=== PATIENT | female | born 1975 | race African-American/Black ===

== ENCOUNTER 2025-03-24 22:47 | Inpatient (IN) | payer BC ==
[~2025-03-24] VITALS: Ht 157.5 cm; Wt 59.0 kg
[~2025-03-24 22:47] MED LIST: ATEN100T PO; BUPR10DI TD; CLON0.1T PO; FER300LQ GT; FERRCAP OR; HYDR50TA69 PO; PANT40TA2 PO
--- NOTE | 2025-03-24 23:17 | ECG ---
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
--- NOTE | 2025-03-24 23:18 | ED.PDOC ---
History of Present Illness HPI Comments 49 year old female with a Hx of Ectopic , CHF, Anemia, and Depression was BIBA for the c/c of Generalized Weakness w/ associated Dizziness, dyspnea and severe fatigue on mild exertion, Constipation and N/. Pt states that her symptoms have been onset for 1x month with no alleviating factors, but a wo rsening factors of walking. Pt notes that she has not been able to take her Iron pills due to a prior Gastric Bypass surgery. No other associated symptoms, modifiers, recent injuries or sick contacts present at this time. Chief Complaint: General Weakness Time Seen by MD: 23:13 Reviewed Notes: Nurses Notes, General Purchasing Agent Notes, Medications, Allergies Allergies: Uncoded Allergies: Banana,Iodine, Latex (Allergy, Severe, Buenrostro , Itching, 12/05/23) Iodine-Buenrostro Banana/Latex-Severe Itchiness Home Meds Active Scripts Ferrous Fumarate W/ B12-Vit C- (Foltrin) Cap, 1 BOT OR DAILY for 30 Days, #30 CAP Prov:ML BURDEN RESIDENT 12/06/23 Reported Medications Ferrous Sulfate (Ferrous Sulfate) 300 Mg/5 Ml Sr, 300 MG GT, SYP 12/05/23 Atenolol (Atenolol) 100 Mg Tab, 1 TAB PO DAILY, #30 TAB 5 Refills 12/05/23 Pantoprazole Sodium Sesquihydr (Protonix) 40 Mg Tab, 40 MG PO DAILY, #30 TAB 12/05/23 Clonidine Hydrochloride (Clonidine Hcl) 0.1 Mg Tab, 0.1 MG PO BID, TAB 12/05/23 Buprenorphine (BUTRANS) 10 Mcg/Hr Dis, 10 MCG TD, DIS 12/05/23 Hydroxyzine Hcl (Hydroxyzine Hcl) 50 Mg Tab, 1 TAB PO BID, #90 TAB 2 Refills 12/05/23 Information Source: Patient, Emergency Med Personnel Mode of Arrival: EMS Severity: Moderate Timing: Months Duration: Intermittent Prehospital treatment: Pain Meds Past Medical History PAST MEDICAL HISTORY: Anemia, CHF, Depression Surgical History (Other): Gastric Bypass, 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 Moist mucous membranes.) Neck: Full Range of Motion, Normal Inspection Respiratory: Lungs Clear, No Accessory Muscle Use, No Respiratory Distress, Normal Breath Sounds Cardiovascular: No Edema, No JVD, Regular Rate/Rhythm Breast Exam: Deferred Gastrointestinal: Non Tender, Soft Genitalia: Deferred Pelvic: Deferred Rectal: Deferred Extremities: Normal inspection, Normal range of motion, Non-tender, No pedal edema Neurologic: Alert (Oriented x4), Normal Affect, Normal Mood, Other (Ambulatory) Cerebellar Function: NOT DONE Reflexes: NOT DONE Skin: Dry, Pallor, Warm Lymphatic: NOT DONE Was a procedure done? Was a procedure done?: No EKG EKG : Comments Sinus rhythm, rate 82, normal intervals, normal axis, normal QRS, no ST/T change. Differential Dx Considerations may include: Anemia, CHF, electrolyte imbalance, arrhythmia, AL, hypovolemia, among others X-Ray, Labs, Meds, VS Vital Signs Date Time Temp Pulse Resp B/P (MAP) Pulse Ox O2 Delivery O2 Flow Rate FiO2 03/25/25 01:28 98.3 77 17 152/82 (105) 97 98.3 03/25/25 01:28 77 17 97 Room Air 03/24/25 23:03 98.7 89 18 159/98 (118) 97 98.7 03/24/25 22:55 82 Lab Test 03/25/25 00:24 03/24/25 23:25 03/24/25 22:59 03/24/25 03:25 Range/Units Troponin I High Sensitivity 3 L 3 L </=34 ng/L White Blood Count 4.2 L 4.4-10.8 10^3/uL Red Blood Count 2.85 L 4.0-5.20 10^6/uL Hemoglobin 6.5 *L 12.2-16.2 g/dL Hematocrit 20.6 L 36.0-46.0 % Mean Corpuscular Volume 72.3 L 80.0-100.0 fL Mean Corpuscular Hemoglobin 22.8 L 28.0-32.0 pg Mean Corpuscular Hemoglobin Concent 31.5 L 32.0-36.0 g/dL Red Cell Distribution Width 19.0 H 11.8-14.3 % Platelet Count 246 140-450 10^3/uL Mean Platelet Volume 6.9 6.9-10.8 fL Neutrophils (%) (Auto) 55.4 37.0-80.0 % Lymphocytes (%) (Auto) 35.8 10.0-50.0 % Monocytes (%) (Auto) 7.5 0.0-12.0 % Eosinophils (%) (Auto) 0.8 0.0-7.0 % Basophils (%) (Auto) 0.5 0.0-2.0 % Neutrophils # (Auto) 2.3 1.6-8.6 10 ^3/uL Lymphocytes # (Auto) 1.5 0.4-5.4 10 ^3/uL Monocytes # (Auto) 0.3 0-1.3 10 ^3/uL Eosinophils # (Auto) 0 0-0.8 10 ^3/uL Basophils # (Auto) 0 0-0.2 10 ^3/uL Nucleated Red Blood Cells 0.1 % Sodium Level 139 136-145 mmol/L Potassium Level 3.9 3.5-5.1 mmol/L Chloride Level 105 98-107 mmol/L Carbon Dioxide Level 27 20-31 mmol/L Anion Gap 7 5-15 Blood Urea Nitrogen 13 9-23 mg/dL Creatinine 0.81 0.550-1.02 mg/dL Glomerular Filtration Rate Calc 89 >90 mL/min BUN/Creatinine Ratio 16.0 10.0-20.0 Serum Glucose 92 74-106 mg/dL Calcium Level 9.0 8.7-10.4 mg/dL B-Type Natriuretic Peptide 27.66 0-100 pg/mL POC Glucose 92 70-106 mg/dl Urine Color Pending Urine Clarity Pending Urine pH Pending Urine Specific [place] Pending Urine Protein Pending Urine Ketones Pending Urine Blood Pending Urine Nitrite Pending Urine Bilirubin Pending Urine Urobilinogen Pending Urine Leukocyte Esterase Pending Urine RBC Pending Urine Microscopic WBC Pending Urine Squamous Epithelial Cells Pending Urine Bacteria Pending Urine Glucose Pending Urine Test Pending PATIENT: MIKE RICH ACCT: [id number] UNIT: [id number] : 1975 LOC: ER ROOM / BED: / AGE / SEX: 49 / F ADM STATUS: REG ER SERVICE [id number] ORDERING PHYSICIAN: MICKEY CAPPS MD PROCEDURE(s): CXRP - CHEST PORTABLE REASON: sob gen vyas ORDER NUMBER(s): [id number], ACCESSION NUMBER(s): [id number] CHEST RADIOGRAPH Indication: heather vyas Technique: Single frontal view of the chest was obtained COMPARISON: None FINDINGS: Lines and Tubes: None Lungs: Clear Pleura: No effusion. No pneumothorax. Cardiomediastinal contours: Unremarkable Bones: Unremarkable IMPRESSION: 1. No acute disease. X-Ray, Labs, Meds, VS Comment 49-year-old female with a history of Ectopic , CHF, Anemia, and Depression complaining of general weakness, dizziness, dyspnea on exertion and nausea Vitals remarkable for BP 159/98 Exam remarkable for pallor Rhythm strip independently interpreted by me: Sinus rhythm, rate 82, no ectopy. Chest x-ray unremarkable CBC remarkable for WBC 4.2, hemoglobin 6.5, hematocrit 20.6, metabolic panel, BNP and 2 serial troponins negative Patient treated with the following in the ED: Typed and crossed for 1 unit of packed red cells and transfusion ordered Plan is to admit the patient for transfusion and hemoglobin trend Patient refused blood transfusion, stating that she has had transfusions in the past that did not work for her anemia. She states on her last admission here she received an iron infusion which did help improve her hemoglobin. We will hold off on blood transfusion for now. Iron panel and iron infusion were ordered. Time of 1ST Reevaluation: 23:43 Reevaluation 1ST: Unchanged Patient Education/Counseling: Diagnosis, Treatment, Need For Follow Up Family Education/Counseling: No Family Present SEPSIS Sepsis Screen Physician Orders Chest Portable (03/24/25 23:10) Urinalysis (03/24/25 23:10) Test, Urine (03/24/25 23:10) Type And Screen (03/25/25 00:35) Vital Signs Date Time Temp Pulse Resp B/P (MAP) Pulse Ox O2 Delivery O2 Flow Rate FiO2 03/25/25 01:28 98.3 77 17 152/82 (105) 97 98.3 03/25/25 01:28 77 17 97 Room Air 03/24/25 23:03 98.7 89 18 159/98 (118) 97 98.7 03/24/25 22:55 82 Laboratory Tests Test 03/24/25 23:25 White Blood Count 4.2 10^3/uL (4.4-10.8) L Departure 1 Departure Time of Disposition: 00:44 Impression: Primary Impression: Severe anemia Disposition: 09 ADMITTED INPATIENT Admit to: Med Surg Condition: Guarded Critical Care Note Critical Care Time?: Yes (35 min-critical care time only) Critical care comment: Critical care time including multiple bedside re-evaluations, review of lab and imaging studies, and discussion of the case with the admitting provider. Patient is high risk for hemodynamic decompensation. Stability Stability form required: No Heart Score Heart Score: Heart Score Response (Comments) Value History N/A 0 EKG N/A 0 Age N/A 0 Risk Factors N/A 0 Troponin N/A 0 Total 0 I personally scribed for MICKEY CAPPS MD ([email or web address]) on 03/24/25 at 23 :18. Electronically submitted by Pepe Raman ([email or web address]). I personally scribed for MICKEY CAPPS MD ([email or web address]) on 03/24/25 at 23:59. Electronically submitted by Pepe Raman ([email or web address]). MICKEY CAPPS MD Mar 24, 2025 23:18
--- NOTE | 2025-03-24 23:47 | DVH ---
CHEST RADIOGRAPH Indication: sob gen weak Technique: Single frontal view of the chest was obtained COMPARISON: None FINDINGS: Lines and Tubes: None Lungs: Clear Pleura: No effusion. No pneumothorax. Cardiomediastinal contours: Unremarkable Bones: Unremarkable IMPRESSION: 1. No acute disease.
[2025-03-25] VITALS (7 sets, daily range): BP systolic 140–159; BP diastolic 78–89; PULSE 71–107; RESP 10–17; TEMP 98.1–99.1; O2SAT 99–100
[2025-03-25 00:05] LABS: Chloride 105 mmol/L (98-107); Potassium 3.9 mmol/L (3.5-5.1); Sodium 139 mmol/L (136-145)
[2025-03-25 00:06] LABS: Anion Gap 7 (5-15); Carbon Dioxide 27 mmol/L (20-31); Hematocrit 20.6 % (36.0-46.0); Mean Corpuscular Hemoglobin 22.8 pg (28.0-32.0); Mean Corpuscular Volume 72.3 fL (80.0-100.0); Nucleated Red Blood Cells % 0.1 %
[2025-03-25 00:07] LABS: Calcium 9.0 mg/dL (8.7-10.4)
[2025-03-25 00:09] LABS: Hemoglobin 6.5 g/dL (12.2-16.2)
[2025-03-25 00:11] LABS: BUN/Creatinine Ratio 16.0 (10.0-20.0); Blood Urea Nitrogen 13 mg/dL (9-23); Glucose 92 mg/dL (74-106)
[2025-03-25 03:55] LABS: Urine Protein, UAD Negative (Negative)
[2025-03-25 04:13] LABS: Iron 20.0 ug/dL (50-170)
[2025-03-25 04:14] LABS: Total Iron Binding Capacity 390.0 ug/dL (250-425)
--- NOTE | 2025-03-25 04:24 | DVHHP2 ---
History of Present Illness History of Present Illness History of Present Illness Patient is 48-year-old female with past medical history of gastric sleeve surgery, endometriosis, heavy menstrual bleeding came to the hospital with symptomatic severe anemia, hemoglobin 6.5. As per patient she has been diagnosed with severe iron-deficiency anemia and not taking oral supplement including iron tablets, intrinsic factor with B12 for past one and half year. Patient was hospitalized one year ago in [facility], received IV iron and advised to follow up with OBGYN in outpatient setting and was advised to take oral iron supplement. However patient came to the hospital with a chief complaint of generalized weakness, associated fatigue with mild exertion. Patient denied any other symptoms including fever, chills, menorrhagia, abdominal pain, chest pain, any other symptoms. As per patient her last menstrual period on week of March, nowadays she gets four days of bleeding, 3-4 pads per day. No any other symptoms at this point. Past Medical History Endometriosis, questionable CHF, iron-deficiency anemia, depression, ectopic Past Surgical History Gastric sleeve, tubal ligation Smoke: No, eats edible marijuana ALCOHOL: none Drugs: None Lives: with Family Review of Systems Constitutional: No: Fever, Chills, Sweats, Weakness, Malaise, Other Eyes: No: Pain, Vision change, Conjunctivae inflammation, Eyelid inflammation, Other, Redness ENT: No: Ear pain, Ear discharge, Nose pain, Nose discharge, Nose congestion, Mouth pain, Mouth swelling, Throat pain, Throat swelling, Other Respiratory: No: Cough, Dry, Shortness of breath, SOB with excertion, Wheezing, Hemoptysis, Pleuritic Pain, Sputum, Wheezing, Other Cardiovascular: No: Chest Pain, Palpitations, Orthopnea, Paroxysmal Noc. Dyspnea, Edema, Lt Headedness, Other Gastrointestinal: No: Nausea, Vomiting, Abdominal Pain, Diarrhea, Constipation, Melena, Hematochezia, Other Genitourinary: No Dysuria, No Frequency, No Incontinence, No Hematuria, No Retention, No Other Musculoskeletal: No: other, neck pain, shoulder pain, arm pain, back pain, hand pain, leg pain, foot pain Skin: No: Rash, Lesions, Jaundice, Bruising, Other Neurological: No: Weakness, Numbness, Incoordination, Change in speech, Confusion, Seizures, Other Allergies: Uncoded Allergies: Banana,Iodine, Latex (Allergy, Severe, Buenrostro , Itching, 12/05/23) Iodine-Buenrostro Banana/Latex-Severe Itchiness Medications Current Medications Medications Dose Ordered Sig/Vivek Route Start Time Stop Time Status Last Admin Dose Admin Iron Sucrose 110 ml @ 110 mls/hr DAILY@1200 IV 03/25/25 12:00 03/29/25 12:59 Exam Vital Signs Vital Signs Date Time Temp Pulse Resp B/P (MAP) Pulse Ox O2 Delivery O2 Flow Rate FiO2 03/25/25 03:41 98.5 105 17 159/90 (113) 99 98.5 03/25/25 03:41 Room Air* 0 21 General Appearance: Alert, Oriented X3 HEENT: Atraumatic, PERRLA, Other (angular cheilitis) Respiratory: Clear to auscultation, Normal air movement Cardiovascular: Normal S1, Normal S2, No murmurs Abdominal: Normal bowel sounds, Soft Extremities: No clubbing, No cyanosis, No edema, Normal pulses Skin: No rashes, No breakdown, No significant lesion Neuro: Normal gait, Normal speech, Strength at 5/5 X4 ext Labs/Xrays Labs Test 03/25/25 00:24 03/24/25 23:25 03/24/25 22:59 03/24/25 03:25 Range/Units Troponin I High Sensitivity 3 L </=34 ng/L White Blood Count 4.2 L 4.4-10.8 10^3/uL Red Blood Count 2.85 L 4.0-5.20 10^6/uL Hemoglobin 6.5 *L 12.2-16.2 g/dL Hematocrit 20.6 L 36.0-46.0 % Mean Corpuscular Volume 72.3 L 80.0-100.0 fL Mean Corpuscular Hemoglobin 22.8 L 28.0-32.0 pg Mean Corpuscular Hemoglobin Concent 31.5 L 32.0-36.0 g/dL Red Cell Distribution Width 19.0 H 11.8-14.3 % Platelet Count 246 140-450 10^3/uL Mean Platelet Volume 6.9 6.9-10.8 fL Neutrophils (%) (Auto) 55.4 37.0-80.0 % Lymphocytes (%) (Auto) 35.8 10.0-50.0 % Monocytes (%) (Auto) 7.5 0.0-12.0 % Eosinophils (%) (Auto) 0.8 0.0-7.0 % Basophils (%) (Auto) 0.5 0.0-2.0 % Neutrophils # (Auto) 2.3 1.6-8.6 10 ^3/uL Lymphocytes # (Auto) 1.5 0.4-5.4 10 ^3/uL Monocytes # (Auto) 0.3 0-1.3 10 ^3/uL Eosinophils # (Auto) 0 0-0.8 10 ^3/uL Basophils # (Auto) 0 0-0.2 10 ^3/uL Nucleated Red Blood Cells 0.1 % Sodium Level 139 136-145 mmol/L Potassium Level 3.9 3.5-5.1 mmol/L Chloride Level 105 98-107 mmol/L Carbon Dioxide Level 27 20-31 mmol/L Anion Gap 7 5-15 Blood Urea Nitrogen 13 9-23 mg/dL Creatinine 0.81 0.550-1.02 mg/dL Glomerular Filtration Rate Calc 89 >90 mL/min BUN/Creatinine Ratio 16.0 10.0-20.0 Serum Glucose 92 74-106 mg/dL Calcium Level 9.0 8.7-10.4 mg/dL Iron Level 20 L 50-170 ug/dL Total Iron Binding Capacity 390 250-425 ug/dL Percent Iron Saturation 5.1 L 15-50 % B-Type Natriuretic Peptide 27.66 0-100 pg/mL POC Glucose 92 70-106 mg/dl Urine Color Light-yellow Yellow Urine Clarity Clear Clear Urine pH 6.5 5.0-9.0 Urine Specific [place] 1.018 1.001-1.035 Urine Protein Negative Negative Urine Ketones Negative Negative Urine Blood Trace H Negative /uL Urine Nitrite Negative Negative Urine Bilirubin Negative Negative Urine Urobilinogen Normal Negative mg/dL Urine Leukocyte Esterase Negative Negative /uL Urine RBC 5 0 - 4 /hpf Urine Microscopic WBC 1 0-5 /HPF Urine Squamous Epithelial Cells Few <5 /hpf Urine Bacteria None seen None Seen /hpf Urine Glucose Normal Normal mg/dL Urine Test Negative Negative SEPSIS Sepsis Screen Date sepsis recognized/suspect: Mar 25, 2025 Time Sepsis recognized/suspect: 354 Recent Procedure: No On Antibiotic Therapy: No Respiratory Rate >20: No Heart Rate >90: No Temp<36 C (96.8 F) or >38.3 C: No SBP <90 or MAP <65 mmHG: No New Acute Mental Status Change: No Is the patient on CPAP, BIPAP,: No Physician Orders Chest Portable (03/24/25 23:10) Type And Screen (03/25/25 00:35) Iron Sucrose Complex (Venofer) (03/25/25 12:00) Admit (03/25/25 04:18) Code Status (03/25/25 04:18) Vital Signs .PER UNIT PROTOCOL (03/25/25 04:18) Regular Diet (03/25/25 Breakfast) Notify Md Of Changes From Base (03/25/25 04:18) Advance Directive (03/25/25 04:18) Patient Condition (03/25/25 04:18) Allergies (03/25/25 04:18) Nitroglycerin Sublingual (Ntrostat Subli (03/25/25 04:30) Packedcell-Noactive Bleeding (03/25/25 04:18) Morphine Sulfate Injection (03/25/25 04:30) Golf Course Architect For 24 Hours (03/25/25 04:18) Emergency Dysrhythmia Protocol (03/25/25 04:18) Rhythm Strips Once Every Shift (03/25/25 04:18) Stat Ekg For Chest Pain (03/25/25 04:18) Reticulocyte Count (03/25/25 04:21) Lactate Dehydrogenase (03/25/25 04:21) Vital Signs Date Time Temp Pulse Resp B/P (MAP) Pulse Ox O2 Delivery O2 Flow Rate FiO2 03/25/25 03:41 98.5 105 17 159/90 (113) 99 98.5 03/25/25 03:41 105 17 99 Room Air* 0 21 03/25/25 01:28 98.3 77 17 152/82 (105) 97 98.3 03/25/25 01:28 77 17 97 Room Air 03/24/25 23:03 98.7 89 18 159/98 (118) 97 98.7 03/24/25 22:55 82 Laboratory Tests Test 03/24/25 23:25 White Blood Count 4.2 10^3/uL (4.4-10.8) L Assessment/Plan Assessment/Plan Severe symptomatic anemia due to iron-deficiency anemia Microcytic hypochromic iron-deficiency anemia Possible vitamin B12 deficiency History of gastric sleeve Marin-en-Y surgery History of endometriosis Depression Opiate use disorder: Now on buprenorphin Nonadherent to prescribed medication Plan/recommendation -initially patient refused blood transfusion, now agreed to receive blood transfusion, one PRBC ordered with type and screen. -continue IV iron sucrose -iron panel and CBC is suggestive of iron-deficiency anemia, pending ferritin and B12 level. Treat accordingly. -resume Suboxone given patient taking one pill every other day for opioid use disorder -patient will need prescription for intrinsic factor with B12 and iron supplement, if not tolerable patient may depend on IV iron infusion repetitively. -advised to follow with OBGYN for endometriosis, patient had regular menstruation with not heavy bleed, four days of menstruation with 3-4 pads per day. -PUD prophylaxis with Protonix 40 mg p.o. lona -DVT prophylaxis avoided, patient is ambulatory, low hemoglobin. Goals of care discussed greater than 24 minutes, full code status. Plan discussed with Dr. Salazar Plan discussed with: Patient, Other (RN) My Orders Orders - ML BURDEN Procedure Category Date Status Time Admit ADMIT 03/25/25 Transmitted 04:18 Code Status CODE 03/25/25 Transmitted 04:18 Vital Signs BANNER 03/25/25 Transmitted 04:18 Regular Diet DIET 03/25/25 Transmitted Breakfast Notify Of Changes BANNER 03/25/25 Transmitted From Base 04:18 Advance Directive BANNER 03/25/25 Transmitted 04:18 Patient Condition ORDERS 03/25/25 Transmitted 04:18 Allergies BANNER 03/25/25 Transmitted 04:18 Nitroglycerin PHA 03/25/25 Transmitted Sublingual (Ntrostat 04:30 Packedcell-Noactive BBK 03/25/25 Transmitted Bleeding 04:18 Morphine Sulfate PHA 03/25/25 Transmitted Injection 04:30 Golf Course Architect For BANNER 03/25/25 Transmitted 24 Hours 04:18 Emergency Dysrhythmia BANNER 03/25/25 Transmitted Protocol 04:18 Rhythm Strips Once BANNER 03/25/25 Transmitted Every Shift 04:18 Stat Ekg For Chest BANNER 03/25/25 Transmitted Pain 04:18 Reticulocyte Count LAB 03/25/25 Verified 04:21 Lactate Dehydrogenase LAB 03/25/25 Verified 04:21 Date of Service: Mar 25, 2025 Billing Provider: KOSHIYA,ML RESIDENT Common Visit Codes: [id number] INP/OBS CARE (HIGH) ML BURDEN RESIDENT Mar 25, 2025 04:24
[2025-03-25] MEDS ORDERED: MORPHINE SULFATE INJ 2 MG/ml SYRG IV PRN (04:30)
[2025-03-25] MEDS ORDERED: NITROGLYCERIN 0.4 MG SL TAB SL PRN (04:30)
[2025-03-25] MEDS: BUPRENORPHINE -NALOXONE 8-2mg SL TAB SL ONE (06:43)
[2025-03-25] MEDS: PANTOPRAZOLE 40 MG TAB PO ONE (06:45)
[2025-03-25 08:46] LABS: Hemoglobin 7.9 g/dL (12.2-16.2)
[2025-03-25 08:48] LABS: Hematocrit 24.9 % (36.0-46.0)
[2025-03-25] MEDS: CYANOCOBALAMIN (B-12) 1000 MCG/1 ML VIAL IM ONE (11:30)
[2025-03-25] MEDS: IRON SUCROSE COMPLEX 110 ML IV SCH (11:59)
[2025-03-25] MEDS ORDERED: ACETAMINOPHEN 500 MG TAB or CAP PO PRN (13:00)
--- NOTE | 2025-03-25 13:15 | DVHPNRES ---
Progress Note Date Seen: Mar 25, 2025 Resident Creating Document: ISIDRA HEARN RESIDENT Medical Necessity Reason Pt with a Central, PICC or Fol: No Subjective Review of Systems Patient is a 49-year-old female with past medical history of opioid use disorder, questionable CHF, iron deficiency anemia, depression, ectopic came to the hospital with severe symptomatic anemia, hemoglobin 6.5. Patient had symptoms of weakness, shortness of breath, fatigue with mild exertion, dizziness, nausea, dry heaves, sweating. As per patient she was diagnosed with iron-deficiency anemia and has not been taking her iron supplementation, intrinsic factor with B12 4 the past 1-1/2 year. Patient was hospitalized 1 year ago for the same problem and received IV iron and was advised to take oral iron supplement. As per patient her last menstrual period was week of March, she uses 3 pads per day and has 4 days of bleeding, which is regular. past surgical history of gastric bypass surgery, abscess removal, and bilateral tubal ligation. She denies any opioid use and is taking Suboxone 8 mg 3 times per week. She takes Wellbutrin for depression and hydroxyzine for anxiety, and regularly follows psychiatrist outpatient. She denies any smoking or alcohol or drug use, has edible marijuana occasionally. Patient seen in the holding area, patient appears alert x3, comfortable, says she is feeling better than yesterday, she complains of cheilitis of the sides of the mouth, tingling sensation in her tongue which also feels rough, and a mild headace, she had not had a bowel movement since 2 days. 1 unit of PRBC was given yesterday. Today her hemoglobin is 7.9, Ferratin 2.5. B12 is 364, and VItamin B12 injection was given. Today she denies any nausea, vomiting, dizziness, diarrhea. Objective vital signs Vital Sign Date Time Temp Pulse Resp B/P (MAP) Pulse Ox O2 Delivery O2 Flow Rate FiO2 03/25/25 07:30 74 10 100 Room Air* 0 21 03/25/25 07:30 98.7 151/82 (105) 98.7 Total Intake and Output 03/24/25 03/24/25 03/25/25 15:00 23:00 07:00 Intake Total 600 ml Output Total 0 ml Balance 600 ml medications Current Medications Medications Dose Ordered Sig/Vivek Route Start Time Stop Time Status Last Admin Dose Admin Iron Sucrose 110 ml @ 110 mls/hr DAILY@1200 IV 03/25/25 12:00 03/29/25 12:59 03/25/25 11:59 110 MLS/HR Nitroglycerin 0.4 mg Q5MINP PRN SL 03/25/25 04:30 Morphine Sulfate 2 mg Q30M PRN IV 03/25/25 04:30 Pantoprazole Sodium 40 mg DAILY@0600 PO 03/26/25 06:00 Examination General: Patient alert and oriented in person, place and time. Patient following commands. HEENT: Normocephalic, atraumatic, moist mucous membranes, rough tounge, Angular cheilitis Respiratory/pulmonary: Clear lungs bilaterally, vesicular murmurs present in almost all lung nam, no associated crackles or wheezes. Cardiovascular: Normal heart sounds S1 and S2 with no associated murmurs Abdomen: Abdomen nondistended, there is no pain to palpation in any of the abdominal quadrants, no palpable masses. Extremities: There is no peripheral edema present at the lower extremities. Peripheral Pulses: 3+ Radial (R). 3+ Radial (L). 3+ Dorsalis pedis (R). 3+ Dorsalis pedis(L) Skin: No rashes or pruritus, there is no sacral edema present at this time. Neurological: Intact cranial nerves with no focal neurologic deficits laboratory and microbiology Laboratory Tests 03/25/25 08:17 03/24/25 23:25 Test 03/24/25 23:25 Range/Units Serum Glucose 92 74-106 mg/dL Problem List/Assessment/Plan Problem List/Assessment/Plan #Severe symptomatic anemia due to iron deficiency anemia #Microcytic hypochromic iron deficiency anemia -history of gastric bypass surgery - given 1 unit PRBC - given IV iron - hb today: 7.9 - iron: 20 - TIBC: 390 - ferratin:2.5 #Vitamin B12 deficiency - B12:364 - B12 injection given - Intrinsic factor and B12 tablet #Deppresion/Anxiety - resume Wellbutrin, Hydroxyzine, regular follow up with psychiatrist #Opiate use disorder - Resume Suboxone everyday PPI PPX: Protonix DVT PPX: ambulatory Goals of care discussed with patient her 27 minutes: Full code Case discussed with Dr. Flowers Plan discussed with: Patient My Orders My Orders Orders - SRIRAMA,ISIDRA RESIDENT Procedure Category Date Status Time Ferritin LAB 03/25/25 In Process 11:23 CC Plasma Assessment Blood Product Administration S: [id number] TAO HEARNA RESIDENT Mar 25, 2025 13:15
[2025-03-25] MEDS ORDERED: POLYETHYLENE GLYCOL 17 GM PWDR PO PRN (14:30)
--- NOTE | 2025-03-25 15:27 | DVHDSRES ---
Discharge Summary Date of Admission Resident Creating Document: ISIDRA HEARN RESIDENT Mar 25, 2025 at 04:18 Date of Discharge: Mar 25, 2025 Admitting Diagnosis #Severe symptomatic anemia due to iron deficiency anemia Labs/Diagnostic Data: Laboratory Results Test 03/25/25 11:23 03/25/25 08:17 03/25/25 04:39 03/25/25 02:24 Ferritin 2.5 ng/mL (10-291) Hemoglobin 7.9 g/dL (12.2-16.2) Hematocrit 24.9 % (36.0-46.0) Hemoglobin A1c < 3.8 % A1C (<5.7) Vitamin B12 Level 364 pg/mL (211-911) Thyroid Stimulating Hormone (TSH) 2.81 uIU/mL (0.55-4.78) Test 03/25/25 00:24 03/24/25 23:25 03/24/25 22:59 03/24/25 03:25 Lactate Dehydrogenase 164 U/L (120-246) Troponin I High Sensitivity 3 ng/L (</=34) White Blood Count 4.2 10^3/uL (4.4-10.8) Red Blood Count 2.85 10^6/uL (4.0-5.20) Mean Corpuscular Volume 72.3 fL (80.0-100.0) Mean Corpuscular Hemoglobin 22.8 pg (28.0-32.0) Mean Corpuscular Hemoglobin Concent 31.5 g/dL (32.0-36.0) Red Cell Distribution Width 19.0 % (11.8-14.3) Platelet Count 246 10^3/uL (140-450) Mean Platelet Volume 6.9 fL (6.9-10.8) Neutrophils (%) (Auto) 55.4 % (37.0-80.0) Lymphocytes (%) (Auto) 35.8 % (10.0-50.0) Monocytes (%) (Auto) 7.5 % (0.0-12.0) Eosinophils (%) (Auto) 0.8 % (0.0-7.0) Basophils (%) (Auto) 0.5 % (0.0-2.0) Neutrophils # (Auto) 2.3 10 ^3/uL (1.6-8.6) Lymphocytes # (Auto) 1.5 10 ^3/uL (0.4-5.4) Monocytes # (Auto) 0.3 10 ^3/uL (0-1.3) Eosinophils # (Auto) 0 10 ^3/uL (0-0.8) Basophils # (Auto) 0 10 ^3/uL (0-0.2) Nucleated Red Blood Cells 0.1 % Reticulocyte Count (auto) 0.72 % (0.5-1.5) Sodium Level 139 mmol/L (136-145) Potassium Level 3.9 mmol/L (3.5-5.1) Chloride Level 105 mmol/L (98-107) Carbon Dioxide Level 27 mmol/L (20-31) Anion Gap 7 (5-15) Blood Urea Nitrogen 13 mg/dL (9-23) Creatinine 0.81 mg/dL (0.550-1.02) Glomerular Filtration Rate Calc 89 mL/min (>90) BUN/Creatinine Ratio 16.0 (10.0-20.0) Serum Glucose 92 mg/dL (74-106) Calcium Level 9.0 mg/dL (8.7-10.4) Iron Level 20 ug/dL (50-170) Total Iron Binding Capacity 390 ug/dL (250-425) Percent Iron Saturation 5.1 % (15-50) B-Type Natriuretic Peptide 27.66 pg/mL (0-100) POC Glucose 92 mg/dl (70-106) Urine Color Light-yellow (Yellow) Urine Clarity Clear (Clear) Urine pH 6.5 (5.0-9.0) Urine Specific [place] 1.018 (1.001-1.035) Urine Protein Negative (Negative) Urine Ketones Negative (Negative) Urine Blood Trace /uL (Negative) Urine Nitrite Negative (Negative) Urine Bilirubin Negative (Negative) Urine Urobilinogen Normal mg/dL (Negative) Urine Leukocyte Esterase Negative /uL (Negative) Urine RBC 5 /hpf (0 - 4) Urine Microscopic WBC 1 /HPF (0-5) Urine Squamous Epithelial Cells Few /hpf (<5) Urine Bacteria None seen /hpf (None Seen) Urine Glucose Normal mg/dL (Normal) Urine Test Negative (Negative) Other Laboratory Tests 03/25/25 08:17 03/24/25 23:25 Brief Hx & Hospital Course: Patient is a 49-year-old female with past medical history of opioid use disorder, questionable CHF, iron deficiency anemia, depression, ectopic came to the hospital with severe symptomatic anemia, hemoglobin 6.5. Patient had symptoms of weakness, shortness of breath, fatigue with mild exertion, dizziness, nausea, dry heaves, sweating. As per patient she was diagnosed with iron-deficiency anemia and has not been taking her iron supplementation, intrinsic factor with B12 4 the past 1-1/2 year. Patient was hospitalized 1 year ago for the same problem and received IV iron and was advised to take oral iron supplement. As per patient her last menstrual period was week of March, she uses 3 pads per day and has 4 days of bleeding, which is regular. past surgical history of gastric bypass surgery, abscess removal, and bilateral tubal ligation. She denies any opioid use and is taking Suboxone 8 mg 3 times per week. Brief hospital course: Patient came to the ED with severe symptomatic anemia due to iron deficiency anemia and has microcytic hypochromic iron deficiency anemia, she has a history of gastric bypass surgery and was given 1 unit of PRBC yesterday and IV iron. Today her hemoglobin was 7.9, ferritin 2.5, TIBC 390, iron 20. She reports feeling better than yesterday and complained of angular cheilitis, and tingling sensation in her tongue which appears rough. She also complains of not having a bowel movement since 2 days. For her vitamin B12 deficiency and B12 injection was given. For her depression and anxiety she was advised to resume home medication Wellbutrin, hydroxyzine follow-up with her psychiatrist. For her opiate use disorder she was counseled to resume her Suboxone every day. GI prophylaxis was given with Protonix. Patient was ambulatory. She tolerated regular diet. Patient is stable for discharge and is recommended to follow-up with discharge Clinic in 1 week, she communicated understanding and agreed to her discharge plan. General: Patient alert and oriented in person, place and time. Patient following commands. HEENT: Normocephalic, atraumatic, moist mucous membranes, rough tounge, Angular cheilitis Respiratory/pulmonary: Clear lungs bilaterally, vesicular murmurs present in almost all lung nam, no associated crackles or wheezes. Cardiovascular: Normal heart sounds S1 and S2 with no associated murmurs Abdomen: Abdomen nondistended, there is no pain to palpation in any of the abdominal quadrants, no palpable masses. Extremities: There is no peripheral edema present at the lower extremities. Peripheral Pulses: 3+ Radial (R). 3+ Radial (L). 3+ Dorsalis pedis (R). 3+ Dorsalis pedis(L) Skin: No rashes or pruritus, there is no sacral edema present at this time. Neurological: Intact cranial nerves with no focal neurologic deficits Operations or Procedures CHEST RADIOGRAPH Indication: sob gen weak Technique: Single frontal view of the chest was obtained COMPARISON: None FINDINGS: Lines and Tubes: None Lungs: Clear Pleura: No effusion. No pneumothorax. Cardiomediastinal contours: Unremarkable Bones: Unremarkable IMPRESSION: 1. No acute disease. Condition at Discharge: Stable Final Diagnosis/Problems List #Severe symptomatic anemia due to iron deficiency anemia #Microcytic hypochromic iron deficiency anemia #Vitamin B12 deficiency #Deppresion/Anxiety #Opiate use disorder Discharge Disposition: Home Discharge Instruct/Medications Diet: Regular Activity: No Restrictions, As Tolerated Follow Up/Referral: Follow up with Discharge clinic in 1 week Medications: As per EMR Scheduled Ferrous Fumarate W/ B12-Vit C- (Foltrin), 1 BOT OR DAILY Hydroxyzine Hcl (Hydroxyzine Hcl), 1 TAB PO BID, (Reported) Pantoprazole Sodium Sesquihydr (Protonix), 40 MG PO DAILY, (Reported) Miscellaneous Medications Buprenorphine (Butrans), 10 MCG TD, (Reported) Ferrous Sulfate (Ferrous Sulfate), 300 MG GT, (Reported) Discontinued Medications Atenolol (Atenolol), 1 TAB PO DAILY, (Reported) Clonidine Hydrochloride (Clonidine Hcl), 0.1 MG PO BID, (Reported) Discharge Statement: "Patient was advised to return to the ER or call 911 if any headaches, dizziness, shortness of breath, chest pain, abdominal pain, bleeding, fevers, or worsening of medical condition. Patient was counseled about treatment plan, medications, possible side effects, patientverbalized understanding. All questions were answered to the best of my ability. This discharge took greater then 30 minutes in planning, reviewing documentation, counseling the patient, and discussing with other team members." ASSESSMENT ASSESSMENT Assessment #Severe symptomatic anemia due to iron deficiency anemia Date of Service: Mar 25, 2025 Billing Provider: LEELEE COSTELLO MD Common Visit Codes: 27664-ENO/OBS DISCH DAY >30min ISIDRA HEARN RESIDENT Mar 25, 2025 15:27 LEELEE COSTELLO MD Mar 27, 2025 16:06
[2025-03-26] MEDS ORDERED: PANTOPRAZOLE 40 MG TAB PO SCH (06:00)
== END 2025-03-25 17:30 | disposition home or self-care (01) | DRG 812 ==
LOC: EDBD 22:47 → ER 22:47 → OVERFLOW 03-25 04:18
PROVIDERS: ADMIT Student in an Organized Health Care Education/Training Program; ATTEND Emergency Medicine
PROC: 30233N1 Transfusion of Nonautologous Red Blood Cells into Peripheral Vein, Percutaneous Approach (ICD-10-PCS; principal; 2025-03-25)
DX: D50.9 Iron deficiency anemia, unspecified (principal); I50.9 Heart failure, unspecified; F32.A Depression, unspecified; F11.10 Opioid abuse, uncomplicated; N80.8 Other endometriosis; E53.8 Deficiency of other specified B group vitamins; Z98.84 Bariatric surgery status; Z87.59 Personal history of other complications of pregnancy, childbirth and the puerperium; Z91.040 Latex allergy status
CPT/HCPCS: 36415; 36430; 71045; 80048; 81001; 81025; 82607; 82728; 82962; 83036; 83540; 83550; 83615; 83880; 84443; 84484; 85014; 85018; 85025; 85045; 86850; 86900; 86901; 86920; 93005; 96365; 96372; 99291; G0378; J1756

== ENCOUNTER 2025-05-30 16:06 | Outpatient (CLI) | payer BC ==
[~2025-05-30 16:06] MED LIST changes: -ATEN100T PO; -CLON0.1T PO
[2025-05-30 16:37] LABS: Urine Protein, UAD Negative (Negative)
== END 2025-05-30 17:00 | disposition home or self-care (01) ==
LOC: LAB 16:06
PROVIDERS: ATTEND Nurse Practitioner
DX: N39.0 Urinary tract infection, site not specified (principal)
CPT/HCPCS: 81001; 87086